=== PATIENT | male | born 1985 | race Two or more races ===

== ENCOUNTER 2019-03-25 14:06 | Emergency (ER) | payer OTHER ==
[~2019-03-25] VITALS: Ht 172.7 cm; Wt 58.5 kg
[2019-03-25] MEDS ORDERED: BUPROPION XL300 MG PO (14:51)
[2019-03-25] MEDS ORDERED: LACTASE ENZ4500 UNIT PO (14:53)
[2019-03-25] MEDS ORDERED: CLONAZEPAM1 MG PO (14:53)
[2019-03-25] MEDS ORDERED: LAMICTAL25 MG PO (14:54)
[2019-03-25] MEDS ORDERED: LAMOTRIGINE25 M3 PO (14:54)
[2019-03-25] MEDS ORDERED: QUETIAPINE PO (14:56)
[2019-03-25] MEDS ORDERED: ZITHROMAX500 MG PO (17:33)
[2019-03-25] MEDS ORDERED: TUSNEL LIQUID178 ML PO (17:33)
== END 2019-03-25 17:56 | disposition home or self-care (01) ==
LOC: ER 14:06
DX: S40.012A Contusion of left shoulder, initial encounter (principal); S05.11XA Contusion of eyeball and orbital tissues, right eye, initial encounter; W22.8XXA Striking against or struck by other objects, initial encounter; Y93.89 Activity, other specified; Y92.89 Other specified places as the place of occurrence of the external cause; Y99.8 Other external cause status